=== PATIENT | male | born 1965 ===

== ENCOUNTER → 2020-02-04 09:24 | Outpatient (CLI) | payer OTHER, SELFPAY ==
--- NOTE | ~2020-02-04 | US_ITS ---
EXAMINATION: US thyroid EXAM DATE: 02/04/2020 09:41 INDICATION: Nodules follow-up. TECHNIQUE: Multiple grayscale and Doppler images of the thyroid were obtained (by a technologist who performed the scan) and subsequently reviewed. Individual nodules and recommendations may be reporte d in accordance with TI-RADS system as designated by the 2017 ACR White Paper TI-RADS committee. Comp carisa is made to prior examination from 03/02/2019. FINDINGS: The right thyroid lobe measures 4.7 x 1.6 x 1.7 cm, the left measuring 4.1 x 1.7 x 1.1 cm. There is h omogeneous thyroid echogenicity. There is a right thyroid lobe nodule measuring 1.5 x 1.5 x 1.2 centimeters, solid (2 points), isoecho ic (1 point), wider than tall, smooth margin, without echogenic foci, category TR3 for this nodule. O n prior study dimensions obtained were 1.4 x 1.2 x 1.1 cm. Small changes in measurements can be resul t of technologist obtaining them at different locations. IMPRESSION: 1. Small right thyroid nodule; recommend 1-2 year follow-up ultrasound. Reviewed, dictated and finalized at location B.
== END ==
PROVIDERS: Visit Provider Chiropractor
DX: E04.2 Nontoxic multinodular goiter (principal)
CPT/HCPCS: 76536